=== PATIENT | female | born 1940 | race Caucasian/White ===

== ENCOUNTER 2016-12-05 16:57 | Emergency (ER) | payer MEDICARE, BC ==
[~2016-12-05] VITALS: Ht 160 cm; Wt 87.7 kg
[2016-12-05 17:10] VITALS: BP 183/103; PULSE 95; RESP 16; TEMP 98.5; O2SAT 96
[2016-12-05] MEDS ORDERED: HTN MED (17:26)
[2016-12-05] MEDS ORDERED: PREV15CA15 PO (17:26)
[2016-12-05] MEDS ORDERED: PULM90IN INH (17:26)
[2016-12-05] MEDS ORDERED: OXYB5TAB10 PO (17:26)
[2016-12-05] MEDS ORDERED: MONT4CHW2 CHEW (17:26)
[2016-12-05] MEDS ORDERED: ORPHENADRINE INJ 60 MG/2 ML AMP IM ONE (17:30)
[2016-12-05] MEDS ORDERED: KETOROLAC TROMETHAMINE 30 MG/ML (IVP) VIAL IV PUSH ONE (17:30)
[2016-12-05] MEDS ORDERED: KETOROLAC TROMETHAMINE 60 MG/2 ML (IM) VIAL IM ONE (17:30)
[2016-12-05] MEDS ORDERED: ORPHENADRINE INJ 60 MG/2 ML AMP IV ONE (17:30)
--- NOTE | 2016-12-05 17:44 | PD ---
HPI Chief Complaint: Back/ Neck Pain or Injury Time Seen by Provider: 17:30 Travel History International Travel<30 days: No Contact w/Intl Traveler<30days: No Traveled to known affect area: No History of Present Illness HPI Patient is a 76-year-old female presenting to the emergency department for evaluation of mid back pain. Patient states pain is been ongoing for approximately one month. She stated that she was prescribed a muscle relaxer prednisone by her primary care provider. She is out of the muscle relaxer but took prednisone last night and today with no relief of symptoms. Patient denies any recent falls or injuries. She reports the pain as an 8 out of 10 and states it's radiating across her back. Patient denies any chest pain, shortness of breath, fever, chills, wheezing. PFSH Past Medical History Asthma: Yes Cardiovascular Problems: Yes (htn on meds) GERD: Yes Medical other: Yes (SPASTIC BLADDER) ?: Not Past Surgical History Other Surgery: Yes (LUMPECTOMY L) Social History Alcohol Use: Yes Tobacco Use: No Substance Use: No Allergies-Medications (Allergen,Severity, Reaction): Coded Allergies: No Known Allergies (Unverified , 12/05/16) Reported Meds & Prescriptions Reported Meds & Active Scripts Active Percocet (Oxycodone-Acetaminophen) 5-325 mg Tab 1 Tab PO Q6H PRN Reported Pulmicort Flexhaler (Budesonide Powder Inh) 90 Mcg/Act Inhp Unknown Dose INH Q12HR [Htn Med] Unknown Dose Singulair (Montelukast Sodium) 4 Mg Chew Unknown Dose CHEW HS Prevacid (Lansoprazole) 15 Mg Capdr Unknown Dose PO DAILY Ditropan (Oxybutynin Chloride) 5 Mg Tab Unknown Dose PO Q12HR Review of Systems Except as stated in HPI: all other systems reviewed are Neg Musculoskeletal: Positive: Myalgias, Cramping, Pain Physical Exam Narrative GENERAL: Well-nourished, well-developed patient. SKIN: Warm and dry. HEAD: Normocephalic. EYES: No scleral icterus. No injection or drainage. NECK: Supple, trachea midline. No JVD or lymphadenopathy. CARDIOVASCULAR: Regular rate and rhythm without murmurs, gallops, or rubs. RESPIRATORY: Breath sounds equal bilaterally. No accessory muscle use. GASTROINTESTINAL: Abdomen soft, non-tender, nondistended. MUSCULOSKELETAL: No cyanosis, or edema. BACK: Tender to palpation paraspinal musculature in the thoracic region. No CVA tenderness. Moderate kyphosis noted. Data Data Last Documented VS Vital Signs Date Time Temp Pulse Resp B/P Pulse Ox O2 Delivery O2 Flow Rate FiO2 12/05/16 17:10 98.5 95 16 183/103 96 Orders Chest, Pa & Lat (12/05/16 ) Comprehensive Metabolic Panel (12/05/16 17:24) Orphenadrine Inj (Norflex Inj) (12/05/16 17:30) Ketorolac Inj (Toradol Inj) (12/05/16 17:30) Ketorolac Inj (Toradol Inj) (12/05/16 17:30) Orphenadrine Inj (Norflex Inj) (12/05/16 17:30) Labs Laboratory Tests Test 12/05/16 17:30 Sodium Level 137 MEQ/L Potassium Level 4.3 MEQ/L Chloride Level 103 MEQ/L Carbon Dioxide Level 23.8 MEQ/L Anion Gap 10 MEQ/L Blood Urea Nitrogen 17 MG/DL Creatinine 0.55 MG/DL Estimat Glomerular Filtration 108 ML/MIN Rate Random Glucose 140 MG/DL Calcium Level 9.3 MG/DL Total Bilirubin 0.4 MG/DL Aspartate Amino Transf 23 U/L (AST/SGOT) Alanine Aminotransferase 20 U/L (ALT/SGPT) Alkaline Phosphatase 107 U/L Total Protein 8.1 GM/DL Albumin 4.1 GM/DL MDM Medical Decision Making Medical Screen Exam Complete: Yes Emergency Medical Condition: Yes Interpretation(s) Vital Signs Date Time Temp Pulse Resp B/P Pulse Ox O2 Delivery O2 Flow Rate FiO2 12/05/16 17:10 98.5 95 16 183/103 96 Differential Diagnosis Strain versus spasm versus kyphosis versus scoliosis versus discogenic pain versus other Narrative Course Patient is a 76-year-old female who presented to the emergency department for evaluation of thoracic back pain. Pain started a month ago lifting a sewing machine. Patient has been treated by her primary care provider with prednisone and muscle relaxers. Patient presents today with worse pain for the last 2 days secondary to being out of her muscle relaxer. Imaging was ordered. Chest x-ray shows a thoracic compression fracture of indeterminate age. Chemistry was assessed due to patient's use of oxybutynin, to assess for electrolyte abnormality that may cause patient to have muscle cramping. Chemistry is normal. Patient is going back to [place] on Sunday, she is currently staying in [place]. They are only in [facility] visiting. She is wanting to wait to get back to [place] for further evaluation, possible kyphoplasty. Patient be given a short course of oral narcotic pain medication to help control pain more adequately. She is encouraged to return to the nearest emergency department for any new or worsening symptoms. Patient self verbalized understanding of instructions. Patient is stable for discharge. Imaging findings were discussed with my attending physician as well. Diagnosis Primary Impression: Compression fracture of thoracic spine, non-traumatic Qualified Code: M48.54XA - Compression fracture of thoracic spine, non- traumatic, initial encounter Referrals: Primary Care Physician 1 week Patient Instructions: General Instructions, Vertebral Compression Fracture (ED) Additional Instructions: Apply warm moist heat to affected area, continue range of motion exercises, avoid exacerbating activities Take medications as directed Do not drive or operate machinery while taking narcotic pain medication Narcotic pain medication may cause constipation Follow-up with your primary doctor Return to emergency department for any new or worsening symptoms Med/Other Pt SpecificInfo: Prescription(s) given Scripts Oxycodone-Acetaminophen (Percocet)5-325 mg Tab1 Tab PO Q6H PRN (PAIN) #20 TAB Ref 0 Prov:Rolo Yeung MD 12/05/16 Disposition: 01 DISCHARGE HOME Condition: Stable Mackenzie Walker Dec 05, 2016 17:44
--- NOTE | 2016-12-05 17:46 | RADHPO ---
EXAM DATE/TIME: 12/05/2016 17:32 [facility] COMPARISON: No previous studies available for comparison. INDICATIONS : Pain between the shoulder blades and unable to take a deep breath in for 1 month. MEDICAL HISTORY : Carcinoma, breast. SURGICAL HISTORY : Left breast lumpectomy. Bilateral shoulder replacements. ENCOUNTER: Initial ACUITY: 1 month PAIN SCORE: 8/10 LOCATION: Bilateral chest FINDINGS: PA and lateral views of the chest demonstrate the lungs to be symmetrically aerated without evidence of mass, infiltrate or effusion. The cardiomediastinal contours are unremarkable. The patient is sta tus post bilateral shoulder arthroplasty. There is a moderate compression fracture forming of one of the mid thoracic vertebral bodies. There is diffuse osteopenia with mild degenerative change. CONCLUSION: 1. Moderate compression fracture deformity of one of the midthoracic vertebral bodies of indeterminat e age. 2. No acute cardiac pulmonary disease. Rishi Seo MD on December 05, 2016 at 17:44 Board Certified Radiologist. This report was verified electronically.
[2016-12-05 17:55] LABS: CHLORIDE 103 MEQ/L (98-107); SODIUM (NA) 137 MEQ/L (136-145)
[2016-12-05 17:59] LABS: ANION GAP 10 MEQ/L (5-15); BICARBONATE 23.8 MEQ/L (21.0-32.0); BLOOD UREA NITROGEN 17 MG/DL (7-18)
[2016-12-05 18:02] LABS: ALT (GPT) 20 U/L (10-53); AST (GOT) 23 U/L (15-37); GLOMERULAR FILTRATION RATE 108 ML/MIN (>89)
[2016-12-05 18:03] LABS: TOTAL BILIRUBIN ADULT 0.4 MG/DL (0.2-1.0)
[2016-12-05 18:05] LABS: ALKALINE PHOSPHATASE 107 U/L (45-117); POTASSIUM 4.3 MEQ/L (3.5-5.1)
[2016-12-05] MEDS ORDERED: PERC5TAB12 PO (18:37)
== END 2016-12-05 18:53 | disposition home or self-care (01) ==
LOC: PHEFT 16:57
DX: M48.54XA Collapsed vertebra, not elsewhere classified, thoracic region, initial encounter for fracture (principal)
CPT/HCPCS: 71020; 80053; 96374; 96375; 99283; J1885; J2360